=== PATIENT | female | born 1985 | race Caucasian/White ===

== ENCOUNTER → 2020-12-28 15:22 | Outpatient (CLI) | payer BC, SELFPAY ==
--- NOTE | 2020-12-28 15:22 | CT_ITS ---
PROCEDURE: CT SINUS WO CON CLINICAL HISTORY: sinuses congestion COMPARISON: No exams were available for comparison TECHNIQUE: Axial images obtained with sagittal and coronal reformats. All CT scans at the facility use one or more dose reduction, viz: automated exposure control, ma/kV adjustment per patient size (including targeted exams where dose is matched to indication, i.e. head), or iterative reconstruction technique. FINDINGS: No sinus air-fluid levels or significant mucosal thickening. The ostiomeatal units are patent. No sinus masses. There is mild rightward nasal septal deviation. 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 Unremarkable appearing orbits. There is an impacted left maxillary canine tooth. The buckle aspect of the tooth is deviated medially behind the incisors. The mastoid sinuses have an unremarkable appearance. IMPRESSION: 1. Unremarkable paranasal sinuses. 2. Impacted left maxillary canine tooth Dictated by: Roberth Tian MD 12/29/2020 15:13 Roberth Tian MD in [facility] 12/29/2020 15:13
== END ==
PROVIDERS: PCP Emergency Medicine; Visit Provider Otolaryngology
DX: J34.2 Deviated nasal septum (principal); J34.3 Hypertrophy of nasal turbinates
CPT/HCPCS: 70486